=== PATIENT | female | born 1980 | race Two or more races ===

== ENCOUNTER 2024-10-12 17:08 | Inpatient (IN) | payer MEDICAID, OTHER ==
[~2024-10-12] VITALS: Ht 152.4 cm; Wt 64.9 kg
--- NOTE | 2024-10-12 18:27 | ED.PDOC ---
HPI (NEURO) HPI Comments HPI: 44y F who presents to the ED via EMS for chief complaint of seizure like activity - per EMS, pt family called after noting pt has seizure with noted tonic clonic activity for approx 2 minutes - EMS arrived on scene and noted pt was on the ground with unknown head trauma or injury but was alert with noted post-ictal state - EMS states pt has no oral trauma or incontinence noted and EMS states upon arrival to the ED, pt was baseline and no longer in post-ictal state - pt state she has has history of seizure disorder and takes Keppra 500 mg BID and states she took her Keppra last night but states she did not take it this AM - pt states last seizure was September 2023 and states she last saw neurologist 2 years prior - pt in the ED, is alert and oriented x 4 and able to answer all questions, and no noted associated symptoms including headache, dizziness, or any associated symptoms Past Medical history: seizure disorder Past Surgical history: Medications: keppra Allergies: nkda Social History: denies ETOH, denies tobacco use, denies drug use HPI: Poor Historian. REVIEW OF SYSTEMS: CONSTITUTIONAL: All symptoms have resolved by the time I evaluated the patient. She is no longer postictal. She is back to her baseline. Denies acute: fever, diaphoresis, chills, HEAD: Denies acute: headache, photophobia Eyes: Denies acute: Double vision, vision loss, eye pain, eye discharge. EARS: Denies acute: tinnitus, hearing loss, ear discharge, ear pain, THROAT: Denies acute: sore throat, swelling, difficulty swallowing , pain with swallowing, change in voice. NECK: Denies acute: neck pain, neck swelling, stiff neck. HEART: Denies acute : chest pain, palpitations, LUNGS: Denies acute: SOB, wheezing, cough, hemoptysis ABDOMEN: Denies acute: abdominal pain, Nausea, Vomiting, diarrhea, melena , hematemesis, hematochezia SKIN: Denies acute: rash, redness, lesions, itchiness. EXTREMITIES: Denies acute: calf pain, numbness, tingling, weakness, denies pain in extremity. Denies acute: Low back pain. Neuro: Denies acute: focal neurological deficit, motor or sensory focal neurological deficit, dizziness, change in mental status, loss of bowel or bladder function, cauda equina like symptoms. : Denies acute: dysuria, hematuria, flank pain, increase in urinary frequency. PSYCH: Denies acute: hallucination, suicidal ideation, homicidal ideation. FEMALE: Denies acute: abnormal vaginal bleeding, foul odor, unusual discharge. PHYSICAL EXAM: General: ----no----acute distress, awake and alert. Head: normocephalic, atraumatic. Neck: supple, trachea is midline, no swelling. Cervical spine: Palpation of the posterior midline of the cervical spine reveals no focal swelling, erythema, focal tenderness to palpation. Patient has normal range of motion. Throat: Normal phonation. Eyes:, no erythema, no purulent discharge, no proptosis, no icterus. Heart: regular rate, regular rhythm, no significant murmur appreciated. Lungs: no apparent respiratory distress, Able to speak in full sentences. No wheezing, no rhonchi, no crackles. No stridors Clear to auscultation bilaterally. Abdomen: non tender to palpation, non distended, soft, no guarding, no rebound, + bowel sounds. Neuro: Awake, Alert, oriented to name, self, situation, follows commands GCS=15. Speech is normal. Skin: no petechia, no purpura, no cyanosis, non-pale, not jaundice. Lower extremities: --no - Pitting edema no deformity, no focal swelling, no calf TTP. Makes eye contact. moves all four extremities. Face: no apparent facial droop. Stroke: finger to nose cerebellar testing is intact. No pronator drift. 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 No nuchal rigidity, Kernig's sign, Brudzinski's sign, no meningeal signs. ED COURSE: Chief Complaint: Seizure Time Seen by MD: 18:26 Reviewed Notes: Nurses Notes, Medications, Allergies Information Source: Patient, Emergency Med Personnel Mode of Arrival: EMS Was a procedure done? Was a procedure done?: No Differential Diagnosis (SZ) Seizure: Other (SEIZUREDDX include not limited to CVA, cerebellar ischemia/infarct, carotid stenosis, vertebral/carotid artery dissection,, vertebrobasillary insufficiency, Intracranial mass/infection/bleed, encephalopathy, elctrolyte abnormality, thyroid disease, multiple sclerosis, hypoglycemia, drug toxicity, cardiac arrhythmia, sub-theraputic anti-convulsion medications, known seizure disorder, pseudo-seizure.) X-Ray, Labs, Meds, VS Vital Signs Date Time Temp Pulse Resp B/P (MAP) Pulse Ox O2 Delivery O2 Flow Rate FiO2 10/12/24 22:58 89 18 97 Room Air* 0 21 10/12/24 22:56 97.8 85 18 121/80 (94) 100 97.8 10/12/24 21:09 98.8 107 19 134/91 (105) 99 98.8 10/12/24 20:03 93 10/12/24 18:25 98.3 138 14 169/99 (122) 98 98.3 10/12/24 17:20 123 Lab Test 10/12/24 23:26 10/12/24 22:15 10/12/24 21:00 10/12/24 18:42 Range/Units Urine Color Colorless Yellow Urine Clarity Clear Clear Urine pH 6.0 5.0-9.0 Urine Specific Hunt 1.004 1.001-1.035 Urine Protein Negative Negative Urine Ketones Negative Negative Urine Blood Negative Negative /uL Urine Nitrite Negative Negative Urine Bilirubin Negative Negative Urine Urobilinogen Normal Negative mg/dL Urine Leukocyte Esterase Negative Negative /uL Urine RBC <1 0 - 4 /hpf Urine Microscopic WBC 0-5 /HPF Urine Squamous Epithelial Cells Few <5 /hpf Urine Bacteria None seen None Seen /hpf Urine Glucose Normal Normal mg/dL Urine Opiates Screen Neg NEGATIVE Urine Fentanyl Screen Neg NEGATIVE Urine Barbiturates Screen Neg NEGATIVE Urine Phencyclidine Screen Neg NEGATIVE Urine Amphetamines Screen Neg NEGATIVE Urine Benzodiazepines Screen Neg NEGATIVE Urine Cocaine Screen Neg NEGATIVE Urine Cannabinoids Screen Neg NEGATIVE Troponin I High Sensitivity 626 *H 510 *H 172 *H </=34 ng/L White Blood Count 9.7 4.4-10.8 10^3/uL Red Blood Count 4.52 4.0-5.20 10^6/uL Hemoglobin 14.2 12.2-16.2 g/dL Hematocrit 41.7 36.0-46.0 % Mean Corpuscular Volume 92.2 80.0-100.0 fL Mean Corpuscular Hemoglobin 31.3 28.0-32.0 pg Mean Corpuscular Hemoglobin Concent 34.0 32.0-36.0 g/dL Red Cell Distribution Width 13.4 11.8-14.3 % Platelet Count 153 140-450 10^3/uL Mean Platelet Volume 11.0 H 6.9-10.8 fL Neutrophils (%) (Auto) 89.8 H 37.0-80.0 % Lymphocytes (%) (Auto) 5.7 L 10.0-50.0 % Monocytes (%) (Auto) 4.0 0.0-12.0 % Eosinophils (%) (Auto) 0.2 0.0-7.0 % Basophils (%) (Auto) 0.3 0.0-2.0 % Neutrophils # (Auto) 8.7 H 1.6-8.6 10 ^3/uL Lymphocytes # (Auto) 0.6 0.4-5.4 10 ^3/uL Monocytes # (Auto) 0.4 0-1.3 10 ^3/uL Eosinophils # (Auto) 0 0-0.8 10 ^3/uL Basophils # (Auto) 0 0-0.2 10 ^3/uL Nucleated Red Blood Cells 0.0 % Sodium Level 137 136-145 mmol/L Potassium Level 3.6 3.5-5.1 mmol/L Chloride Level 104 98-107 mmol/L Carbon Dioxide Level 24 20-31 mmol/L Anion Gap 9 5-15 Blood Urea Nitrogen 9 9-23 mg/dL Creatinine 0.71 0.550-1.02 mg/dL Glomerular Filtration Rate Calc 108 >90 mL/min BUN/Creatinine Ratio 12.7 10.0-20.0 Serum Glucose 113 H 74-106 mg/dL Lactic Acid Level 1.8 0.4-2.0 mmol/L Calcium Level 9.7 8.7-10.4 mg/dL Magnesium Level 2.1 1.6-2.6 mg/dL Total Bilirubin 0.4 0.2-1.0 mg/dL Aspartate Amino Transferase (AST) 16 13-40 U/L Alanine Aminotransferase (ALT) 17 7-40 U/L Alkaline Phosphatase 63 46-116 U/L Creatine Kinase 216 H 34-145 U/L Total Protein 7.5 5.7-8.2 g/dL Albumin 4.7 3.2-4.8 g/dL [facility] [id number] [facility] [address] Ph: [phone] DIAGNOSTIC IMAGING Diagnostic Imaging Report : [id number] Signed PATIENT: JOSE A GRACECT: [id number] UNIT: [id number] : 1980 LOC: ER ROOM / BED: / AGE / SEX: 44 / F ADM STATUS: REG ER SERVICE 180 ORDERING PHYSICIAN: HAILEY ALVES DO PROCEDURE(s): HWOCT - HEAD WITHOUT CONTRAST REASON: seizure ORDER NUMBER(s): [id number], ACCESSION NUMBER(s): [id number] EXAM: CT HEAD WITHOUT CONTRAST INDICATION: seizure TECHNIQUE: CT of the head without intravenous contrast. Radiation Dose : 1. Head: CT Dose: CTDI volume is 51.32 mGy. Dose-length product is 720.23 mGy*cm The dose indicators for CT are the volume Computed Tomography (CT) Dose Index (CTDIvol) and the Dose Length Product (DLP), and are measured in units of mGy and mGy-cm, respectively. These indicators are not patient dose, but values generated from the CT scanner acquisition factors. The report includes radiation exposure data for exposures received during this examination. COMPARISON: None FINDINGS: There is no evidence of acute intracranial hemorrhage, extra-axial collection, mass effect, midline shift, herniation or hydrocephalus. The ventricles, sulci and cisterns are age appropriate. The mederos-white differentiation is intact. Patchy periventricular and subcortical white matter hypoattenuation is nonspecific but may be related to small vessel ischemic disease. Complete opacification of the right maxillary sinus The surrounding soft tissues and osseous structures are unremarkable. IMPRESSION: 1. No acute intracranial abnormality. 2. Right maxillary sinusitis Radiation optimization: All CT scans at this facility use at least one of these dose optimization techniques: automated exposure control mA and/or kV adjustment per patient size (includes targeted exams where dose is matched to clinical indication) or iterative reconstruction. ATED BY: CIARA MARRERO MD DICTATED DATE/TIME: 10/12/24 1831 SIGNED BY: CIARA MARRERO MD SIGNED DATE/TIME: 10/12/241830 CC: [place] [address] Ph: [phone] DIAGNOSTIC IMAGING Diagnostic Imaging Report : [id number] Signed PATIENT: JOSE A GRACECT: [id number] UNIT: [id number] : 1980 LOC: ER ROOM / BED: / AGE / SEX: 44 / F ADM STATUS: REG ER SERVICE 00 ORDERING PHYSICIAN: HAILEY ALVES DO PROCEDURE(s): CXRP - CHEST PORTABLE REASON: seizure ORDER NUMBER(s): [id number], ACCESSION NUMBER(s): [id number] EXAM: XY CHEST PORTABLE TECHNIQUE: Single frontal chest radiograph CLINICAL HISTORY: seizure COMPARISON: None Findings/Impression: Frontal chest radiograph demonstrates no acute osseous or superficial soft tissue abnormalities. The trachea is midline. The cardiac silhouette and mediastinum are within normal limits. No pneumothorax, pleural effusions, or consolidations. ATED BY: SORAIDA YOUNG DO DICTATED DATE/TIME: 10/12/241835 SIGNED BY: SORAIDA YOUNG DO SIGNED DATE/TIME: 10/12/241835 CC: Time of 1ST Reevaluation: 21:41 (The case was discussed with the [facility] admitting team (HPI, physical exam, labs and diagnostic tests that were available at the time of disposition, ED course, treatment plan) on the phone. They authorized us to keep the patient in our facility for further evaluation and treatment. Dr. Chiang Authorization number is--[id number]) Reevaluation 1ST: Improved Time of 2ND Reevaluation: 23:19 (The case was discussed with the cardiology on- call team (HPI, physical exam, labs and diagnostic tests that were available at the time of disposition, ED course, treatment plan) on the phone. They agreed with our management and said that they will follow in consult. Dr. Moreno. No further recommendations.) Reevaluation 2ND: Resolved Patient Education/Counseling: Diagnosis, Treatment Family Education/Counseling: No Family Present Comments Patient presented with the above HPI.--seizure----workup was initiated. patient was found with the above mentioned diagnosis. No reported history of fall or trauma or injury. Patient arrives at her baseline neurological function no longer postictal. the following medications were ordered: please refer to order lists of meds and tests obtained by myself Dr. Alves. Patient ED course and VS have been stabilized. Patient has been reassessed in the ED and remained in a stable condition. Pertinent incidental findings were discussed with the patient and/or family. Patient/family voices understanding and is agreeable with plan. Patient has been observed in the ED adequate length of time to insure improvement/stability. Escalation of care considered: Consideration of escalation to observation or admission Patient was found with elevated troponin. However she denies any chest pain or shortness of breath. Cardiology was consulted. Patient was ADMITTED to the medicine team for further evaluation and treatment of their presentation. All the reports of any imaging studies that were ordered by myself were reviewed by myself. Departure 1 Departure Time of Disposition: 19:35 Impression: Primary Impression: Recurrent seizures Additional Impressions: Elevated troponin NSTEMI (non-ST elevated myocardial infarction) Disposition: ADMITTED INPATIENT Admit to: Tele Condition: Guarded e-Prescriptions Levetiracetam (Levetiracetam) 500 Mg Tab 1 TAB PO BID for 30 Days, #60 TAB Prov: MAGDA RIVAS RESIDENT 10/14/24 Discharged With: Self Critical Care Note Critical Care Time?: Yes (55 min-critical care time only) I personally scribed for HAILEY ALVES DO ([email or web address]) on 10/12/24 at 18:27. Electronically submitted by Addis Garcia ([email or web address]). I personally scribed for HAILEY ALVES DO ([email or web address]) on 10/12/24 at 20:00. Electronically submitted by Addis Garcia ([email or web address]). HAILEY ALVES DO Oct 12, 2024 18:27
--- NOTE | 2024-10-12 18:34 | DVH ---
EXAM: CT HEAD WITHOUT CONTRAST INDICATION: seizure TECHNIQUE: CT of the head without intravenous contrast. Radiation Dose : 1. Head: CT Dose: CTDI volume is 51.32 mGy. Dose-length product is 720.23 mGy*cm The dose indicators for CT are the volume Computed Tomography (CT) Dose Index (CTDIvol) and the Dose Length Product (DLP), and are measured in units of mGy and mGy-cm, respectively. These indicators are not patient dose, but values generated from the CT scanner acquisition factors. The report includes radiation exposure data for exposures received during this examination. COMPARISON: None FINDINGS: There is no evidence of acute intracranial hemorrhage, extra-axial collection, mass effect, midline s hift, herniation or hydrocephalus. The ventricles, sulci and cisterns are age appropriate. The mederos-white differentiation is intact. Patchy periventricular and subcortical white matter hypoattenuation is nonspecific but may be related to small vessel ischemic disease. Complete opacification of the right maxillary sinus The surrounding soft tissues and osseous structures are unremarkable. IMPRESSION: 1. No acute intracranial abnormality. 2. Right maxillary sinusitis Radiation optimization: All CT scans at this facility use at least one of these dose optimization cedrick hniques: automated exposure control mA and/or kV adjustment per patient size (includes targeted exam s where dose is matched to clinical indication) or iterative reconstruction.
--- NOTE | 2024-10-12 18:38 | DVH ---
EXAM: XY CHEST PORTABLE TECHNIQUE: Single frontal chest radiograph CLINICAL HISTORY: seizure COMPARISON: None Findings/Impression: Frontal chest radiograph demonstrates no acute osseous or superficial soft tissue abnormalities. The trachea is midline. The cardiac silhouette and mediastinum are within normal limits. No pneumothorax, pleural effusions, or consolidations.
--- NOTE | 2024-10-12 18:44 | ECG ---
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
[2024-10-12 19:00] LABS: Basophils # (auto) 0 10 ^3/uL (0-0.2); Basophils % (auto) 0.3 % (0.0-2.0); Eosinophils # (auto) 0 10 ^3/uL (0-0.8); Eosinophils % (auto) 0.2 % (0.0-7.0); Hematocrit 41.7 % (36.0-46.0); Hemoglobin 14.2 g/dL (12.2-16.2); Lymphocytes # (auto) 0.6 10 ^3/uL (0.4-5.4); Lymphocytes % (auto) 5.7 % (10.0-50.0); Mean Corpuscular Hemoglobin 31.3 pg (28.0-32.0); Mean Corpuscular Volume 92.2 fL (80.0-100.0); Monocytes # (auto) 0.4 10 ^3/uL (0-1.3); Neutrophils # (auto) 8.7 10 ^3/uL (1.6-8.6); Neutrophils % (auto) 89.8 % (37.0-80.0); Platelet Count (auto) 153 10^3/uL (140-450); Red Blood Cells 4.52 10^6/uL (4.0-5.20); Red Cell Distribution Width 13.4 % (11.8-14.3); White Blood Cell 9.7 10^3/uL (4.4-10.8)
[2024-10-12 19:18] LABS: Alanine Aminotransferase 17 U/L (7-40); Albumin 4.7 g/dL (3.2-4.8); Alkaline Phosphatase 63 U/L (46-116); Anion Gap 9 (5-15); Aspartate Aminotransferase 16 U/L (13-40); BUN/Creatinine Ratio 12.7 (10.0-20.0); Calcium 9.7 mg/dL (8.7-10.4); Carbon Dioxide 24 mmol/L (20-31); Chloride 104 mmol/L (98-107); Magnesium 2.1 mg/dL (1.6-2.6); Potassium 3.6 mmol/L (3.5-5.1); Sodium 137 mmol/L (136-145); Total Protein 7.5 g/dL (5.7-8.2)
[2024-10-12 19:19] LABS: Bilirubin, Total 0.4 mg/dL (0.2-1.0)
[2024-10-12 19:28] LABS: Blood Urea Nitrogen 9 mg/dL (9-23); Creatine Kinase IFCC 216 U/L (34-145); Glucose 113 mg/dL (74-106)
[2024-10-12] MEDS: levETIRAcetam 1000 mg/100ml 100 ML IV ONE (22:22)
[2024-10-12] MEDS: ASPirin-EC 325mg tab PO ONE (22:22)
[2024-10-12] MEDS: SODIUM CHLORIDE 0.9% 1,000 ML IV ONE (22:23)
[2024-10-12 22:58] VITALS: PULSE 89; RESP 18; O2SAT 97
--- NOTE | 2024-10-12 23:31 | DVHHPRES ---
History of Present Illness Resident Creating Document: HERNAN ARANDA RESIDENT History of Present Illness 44-year-old female patient with past medical history of seizures on Keppra and past surgical history of presented with complaints of episode of seizure. Patient mentioned she felt "lightheadedness and the next thing she was in the ER". She is denying any active complaints including chest pain, shortness of breath, cough, hemoptysis, nausea, vomiting, abdominal pain. Patient mentioned that she takes Keppra 500 mg b.i.d., to Keppra last night but did not take in the morning today. Patient mentioned she had last seizure in April and before that three years ago.per EMS, pt family called after noting pt has seizure with noted tonic clonic activity for approx 2 minutes. EMS arrived on scene and noted pt was on the ground with unknown head trauma or injury but was alert with noted post-ictal state. Past medical history Seizures Past surgical history section Medication history Keppra 500 mg b.i.d. Allergic history No known allergies Social history Patient mentioned that she takes marijuana but denied alcohol, smoking, or any other recreational drug intake Family history Nonsignificant Review of Systems Review of Systems ROS Constitutional: No: Fever, Chills, Sweats, Weakness, Malaise, Other Eyes: No: Pain, Vision change, Conjunctivae inflammation, Eyelid inflammation, Other, Redness ENT: No: Ear pain, Ear discharge, Nose pain, Nose discharge, Nose congestion, Mouth pain, Mouth swelling, Throat pain, Throat swelling, Other Respiratory: No: Cough, Dry, Shortness of breath, SOB with excertion, Wheezing, Hemoptysis, Pleuritic Pain, Sputum, Wheezing, Other Cardiovascular: No: Chest Pain, Palpitations, Orthopnea, Paroxysmal Noc. Dyspnea, Edema, Lt Headedness, Other Gastrointestinal: No: Nausea, Vomiting, Abdominal Pain, Diarrhea, Constipation, Melena, Hematochezia, Other Musculoskeletal: No: other, neck pain, shoulder pain, arm pain, back pain, hand pain, leg pain, foot pain Neurological:; seizures followed by postictal state No: Weakness, Numbness, Incoordination, Change in speech, Confusion, Seizures Allergies: Coded Allergies: NO KNOWN ALLERGIES (Unverified , 10/12/24) Exam Vital Signs Vital Signs Date Time Temp Pulse Resp B/P (MAP) Pulse Ox O2 Delivery O2 Flow Rate FiO2 10/12/24 22:58 89 18 97 Room Air* 0 21 10/12/24 22:56 97.8 121/80 (94) 97.8 Exam Examination General Appearance: Alert, Oriented X3, Cooperative, No acute distress HEENT: EOMI Respiratory: Clear to auscultation, Normal air movement Cardiovascular: Regular rate, Normal S1, Normal S2 Abdominal: Normal bowel sounds Extremities: No cyanosis, No edema, Normal pulses, No tenderness/swelling Skin: No rashes, No breakdown Neuro: Normal gait, Normal speech, Strength at 5/5 X4 ext, Normal tone, Sensa tion intact, Cranial nerves 3-12 NL, Reflexes 2+ Psych/Mental Status: Mental status NL, Mood NL Labs/Xrays Labs Test 10/12/24 22:15 10/12/24 18:42 Range/Units Troponin I High Sensitivity 626 *H </=34 ng/L White Blood Count 9.7 4.4-10.8 10^3/uL Red Blood Count 4.52 4.0-5.20 10^6/uL Hemoglobin 14.2 12.2-16.2 g/dL Hematocrit 41.7 36.0-46.0 % Mean Corpuscular Volume 92.2 80.0-100.0 fL Mean Corpuscular Hemoglobin 31.3 28.0-32.0 pg Mean Corpuscular Hemoglobin Concent 34.0 32.0-36.0 g/dL Red Cell Distribution Width 13.4 11.8-14.3 % Platelet Count 153 140-450 10^3/uL Mean Platelet Volume 11.0 H 6.9-10.8 fL Neutrophils (%) (Auto) 89.8 H 37.0-80.0 % Lymphocytes (%) (Auto) 5.7 L 10.0-50.0 % Monocytes (%) (Auto) 4.0 0.0-12.0 % Eosinophils (%) (Auto) 0.2 0.0-7.0 % Basophils (%) (Auto) 0.3 0.0-2.0 % Neutrophils # (Auto) 8.7 H 1.6-8.6 10 ^3/uL Lymphocytes # (Auto) 0.6 0.4-5.4 10 ^3/uL Monocytes # (Auto) 0.4 0-1.3 10 ^3/uL Eosinophils # (Auto) 0 0-0.8 10 ^3/uL Basophils # (Auto) 0 0-0.2 10 ^3/uL Nucleated Red Blood Cells 0.0 % Sodium Level 137 136-145 mmol/L Potassium Level 3.6 3.5-5.1 mmol/L Chloride Level 104 98-107 mmol/L Carbon Dioxide Level 24 20-31 mmol/L Anion Gap 9 5-15 Blood Urea Nitrogen 9 9-23 mg/dL Creatinine 0.71 0.550-1.02 mg/dL Glomerular Filtration Rate Calc 108 >90 mL/min BUN/Creatinine Ratio 12.7 10.0-20.0 Serum Glucose 113 H 74-106 mg/dL Lactic Acid Level 1.8 0.4-2.0 mmol/L Calcium Level 9.7 8.7-10.4 mg/dL Magnesium Level 2.1 1.6-2.6 mg/dL Total Bilirubin 0.4 0.2-1.0 mg/dL Aspartate Amino Transferase (AST) 16 13-40 U/L Alanine Aminotransferase (ALT) 17 7-40 U/L Alkaline Phosphatase 63 46-116 U/L Creatine Kinase 216 H 34-145 U/L Total Protein 7.5 5.7-8.2 g/dL Albumin 4.7 3.2-4.8 g/dL Assessment/Plan Assessment/Plan Assessment/Plan #Break-through seizure , ?likely due to CB use and medication non adherence -ativan PRN -continue keppra 500mg daily ( home dose) elevated Creatine kinase , repeat #elevated trops likely NSTEMI type 2 due to demand ischaemia due to seizure, possible chest injury -pt was given aspirin 325 mg in the ER -cards consult -echo -ekg Case discussion with dr samuels Plan discussed with: Patient My Orders Orders - HERNAN ARANDA RESIDENT Procedure Category Date Status Time Admit ADMIT 10/12/24 Transmitted 23:29 Oxygen By Nasal RT 10/12/24 Transmitted Cannula 23:29 Stat Ekg For Chest LOBO 10/12/24 Transmitted Pain 23:29 Notify Of Changes LOBO 10/12/24 Transmitted From Base 23:29 Community Outreach Advocate For LOBO 10/12/24 Transmitted 24 Hours 23:29 Emergency Dysrhythmia LOBO 10/12/24 Transmitted Protocol 23:29 Rhythm Strips Once [facility] 10/12/24 Transmitted Every Shift 23:29 Date of Service: Oct 12, 2024 Billing Provider: SANDRA SAMUELS MD Common Visit Codes: [id number] INP/OBS CARE (HIGH) GLADYSARANZA HOOKSIL RESIDENT Oct 12, 2024 23:31 SANDRA SAMUELS MD Oct 13, 2024 19:38
[2024-10-13] VITALS (9 sets, daily range): BP systolic 100–127; BP diastolic 57–86; PULSE 58–88; RESP 14–18; TEMP 97.4–98; O2SAT 95–99
[2024-10-13 00:13] LABS: Urine Bacteria None Seen /hpf (None Seen)
[2024-10-13 00:38] LABS: Urine Blood Negative /uL (Negative); Urine Clarity Clear (Clear); Urine Color Colorless (Yellow); Urine Protein, UAD Negative (Negative); Urine Specific Gravity 1.004 (1.001-1.035); Urine Squamous Epithelial Cell FEW /hpf (<5); Urine Urobilinogen Normal (Negative)
[2024-10-13] MEDS ORDERED: LORazepam 2MG/ML-1ML VIAL IV PRN (02:30)
[2024-10-13] MEDS ORDERED: LEVE500T3 PO (03:35)
[2024-10-13 04:14] LABS: Cannabinoid Screen, Urine Neg (NEGATIVE)
[2024-10-13 04:21] LABS: Amphetamine Screen, Urine Neg (NEGATIVE); Barbiturate Scree,Urine Neg (NEGATIVE); Benzodiazephine Screen, Urine Neg (NEGATIVE); Cocaine Screen, Urine Neg (NEGATIVE); Opiate Scree,Urine Neg (NEGATIVE); Phencyclidine Screen, Urine Neg (NEGATIVE)
--- NOTE | 2024-10-13 04:53 | ECG ---
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
[2024-10-13 07:09] LABS: Basophils # (auto) 0 10 ^3/uL (0-0.2); Basophils % (auto) 0.7 % (0.0-2.0); Eosinophils # (auto) 0 10 ^3/uL (0-0.8); Eosinophils % (auto) 0.5 % (0.0-7.0); Hematocrit 38.9 % (36.0-46.0); Hemoglobin 13.4 g/dL (12.2-16.2); Lymphocytes # (auto) 1.1 10 ^3/uL (0.4-5.4); Lymphocytes % (auto) 21.4 % (10.0-50.0); Mean Corpuscular Hemoglobin 31.9 pg (28.0-32.0); Mean Corpuscular Hgb Conc. 34.4 g/dL (32.0-36.0); Mean Corpuscular Volume 92.7 fL (80.0-100.0); Monocytes # (auto) 0.4 10 ^3/uL (0-1.3); Monocytes % (auto) 7.6 % (0.0-12.0); Neutrophils # (auto) 3.7 10 ^3/uL (1.6-8.6); Neutrophils % (auto) 69.8 % (37.0-80.0); Nucleated Red Blood Cells % 0.1 %; Platelet Count (auto) 151 10^3/uL (140-450); Red Cell Distribution Width 13.5 % (11.8-14.3); White Blood Cell 5.4 10^3/uL (4.4-10.8)
[2024-10-13 07:13] LABS: Anion Gap 9 (5-15); Calcium 9.7 mg/dL (8.7-10.4); Potassium 3.8 mmol/L (3.5-5.1); Sodium 142 mmol/L (136-145)
[2024-10-13 07:15] LABS: Chloride 110 mmol/L (98-107)
[2024-10-13 07:18] LABS: BUN/Creatinine Ratio 13.3 (10.0-20.0); Glucose 93 mg/dL (74-106)
[2024-10-13 07:19] LABS: Magnesium 2.2 mg/dL (1.6-2.6)
[2024-10-13 07:31] LABS: Blood Urea Nitrogen 8 mg/dL (9-23); Creatine Kinase IFCC 241 U/L (34-145)
[2024-10-13 07:32] LABS: Carbon Dioxide 23 mmol/L (20-31)
[2024-10-13] MEDS: levETIRAcetam 500 MG TAB PO SCH (08:53)
--- NOTE | 2024-10-13 10:55 | DVHINCON2 ---
JUSTIN LOPEZ [facility] 10/13/24 1055: Date Seen: Oct 13, 2024 Referring Physician MD Savannah Reason for Consultation Elevated troponin History of Present Illness This is a 44-year-old female patient who presents to the emergency room with chief complaint of seizure activity. The patient reports that she was running errands all day on the day of admission. She states that she went home and decided to take a nap and while walking to her bedroom does not remember the events that took place. The patient reports that the next thing she remembers is waking up on the ground surrounded by family members. The patient was told that she had a seizure. She does report waking up face down and noticing some pain to her face. EMS was called and the patient was brought to the emergency room. Cardiology has been consulted at this time for elevated troponin level. Initial twelve lead electrocardiogram reveals normal sinus rhythm with nonspecific ST segment changes to lateral leads. Initial troponin level of 172ng/L with up trend and peak level at 638ng/L. The patient denies any cardiac symptoms including chest pain, shortness of breath, or palpitations. Significant past medical history includes seizures. The patient denies all other history. Past Medical History Past medical history reviewed. No other significant than mentioned above. Past Surgical History Family History: Patient reports no known family medical history. Family History Family history reviewed. Social History Denies the use of tobacco, alcohol or illicit drugs. Allergies: Coded Allergies: NO KNOWN ALLERGIES (Unverified , 10/12/24) Home Meds Active Scripts Levetiracetam (Levetiracetam) 500 Mg Tab, 1 TAB PO BID for 30 Days, #60 TAB Prov:MAGDA RIVAS RESIDENT 10/14/24 Home Meds Home medications reviewed. Current Medications Current Medications Medications (Trade) Dose Ordered Sig/Tanya Route PRN Reason Start Time Stop Time Status Last Admin Levetiracetam (Keppra Tablet) 500 mg BID PO 10/13/24 10:00 10/13/24 08:53 Lorazepam (Ativan Inj) 1 mg Q5MINP PRN IV SEIZURES 10/13/24 02:30 Review of Systems Constitutional: No symptom reported Ears, Nose, & Throat: No symptom reported Eyes: No symptom reported Neurological: Seizure Pulmonary/Respiratory: No symptoms reported Cardiovascular: No symptom reported Gastrointestinal: No symptom reported Genitourinary: No symptom reported Musculoskeletal: No symptom reported Skin: No symptom reported Psychiatric: No symptom reported Endocrine: No symptom reported Hematologic/Lymphatic: No symptom reported Vital Signs Vital Signs Date Time Temp Pulse Resp B/P (MAP) Pulse Ox O2 Delivery O2 Flow Rate FiO2 10/13/24 08:46 97.4 68 16 110/76 (87) 98 97.4 10/13/24 08:00 Room Air* 0 21 Physical Exam General Appearance: Cooperative. Well-developed. Well-nourished. No acute distress. Pulmonary/Respiratory: Clear, bilateral breaths sounds. Cardiovascular/Chest: Regular rate and rhythm. Peripheral Pulses: 2+ Radial (R). 2+ Radial (L). 2+ Pedal (R). 2+ Pedal (L) Abdominal Exam: Normal bowel sounds. Ankle Exam: Negative ankle edema Lower extremities: Negative lower extremity edema Neuro/Mental Status: A/OX4, coherent. Thoughts/Psych: Normal thought pattern. Appropriate mood and affect. Good judgment and insight. Appearance: No acute distress. Skin Exam: Abrasion to right forehead. Ecchymosis under right eye Labs/Diagnostic Data Labs Test 10/13/24 06:20 10/12/24 23:26 10/12/24 18:42 Range/Units White Blood Count 5.4 # 4.4-10.8 10^3/uL Red Blood Count 4.20 4.0-5.20 10^6/uL Hemoglobin 13.4 12.2-16.2 g/dL Hematocrit 38.9 36.0-46.0 % Mean Corpuscular Volume 92.7 80.0-100.0 fL Mean Corpuscular Hemoglobin 31.9 28.0-32.0 pg Mean Corpuscular Hemoglobin Concent 34.4 32.0-36.0 g/dL Red Cell Distribution Width 13.5 11.8-14.3 % Platelet Count 151 140-450 10^3/uL Mean Platelet Volume 11.1 H 6.9-10.8 fL Neutrophils (%) (Auto) 69.8 37.0-80.0 % Lymphocytes (%) (Auto) 21.4 10.0-50.0 % Monocytes (%) (Auto) 7.6 0.0-12.0 % Eosinophils (%) (Auto) 0.5 0.0-7.0 % Basophils (%) (Auto) 0.7 0.0-2.0 % Neutrophils # (Auto) 3.7 1.6-8.6 10 ^3/uL Lymphocytes # (Auto) 1.1 0.4-5.4 10 ^3/uL Monocytes # (Auto) 0.4 0-1.3 10 ^3/uL Eosinophils # (Auto) 0 0-0.8 10 ^3/uL Basophils # (Auto) 0 0-0.2 10 ^3/uL Nucleated Red Blood Cells 0.1 % Sodium Level 142 # 136-145 mmol/L Potassium Level 3.8 3.5-5.1 mmol/L Chloride Level 110 H 98-107 mmol/L Carbon Dioxide Level 23 20-31 mmol/L Anion Gap 9 5-15 Blood Urea Nitrogen 8 L 9-23 mg/dL Creatinine 0.60 0.550-1.02 mg/dL Glomerular Filtration Rate Calc 114 >90 mL/min BUN/Creatinine Ratio 13.3 10.0-20.0 Serum Glucose 93 74-106 mg/dL Calcium Level 9.7 8.7-10.4 mg/dL Magnesium Level 2.2 1.6-2.6 mg/dL Creatine Kinase 241 H 34-145 U/L Troponin I High Sensitivity 638 *H </=34 ng/L Urine Color Colorless Yellow Urine Clarity Clear Clear Urine pH 6.0 5.0-9.0 Urine Specific [place] 1.004 1.001-1.035 Urine Protein Negative Negative Urine Ketones Negative Negative Urine Blood Negative Negative /uL Urine Nitrite Negative Negative Urine Bilirubin Negative Negative Urine Urobilinogen Normal Negative mg/dL Urine Leukocyte Esterase Negative Negative /uL Urine RBC <1 0 - 4 /hpf Urine Microscopic WBC 0-5 /HPF Urine Squamous Epithelial Cells Few <5 /hpf Urine Bacteria None seen None Seen /hpf Urine Glucose Normal Normal mg/dL Urine Opiates Screen Neg NEGATIVE Urine Fentanyl Screen Neg NEGATIVE Urine Barbiturates Screen Neg NEGATIVE Urine Phencyclidine Screen Neg NEGATIVE Urine Amphetamines Screen Neg NEGATIVE Urine Benzodiazepines Screen Neg NEGATIVE Urine Cocaine Screen Neg NEGATIVE Urine Cannabinoids Screen Neg NEGATIVE Lactic Acid Level 1.8 0.4-2.0 mmol/L Total Bilirubin 0.4 0.2-1.0 mg/dL Aspartate Amino Transferase (AST) 16 13-40 U/L Alanine Aminotransferase (ALT) 17 7-40 U/L Alkaline Phosphatase 63 46-116 U/L Total Protein 7.5 5.7-8.2 g/dL Albumin 4.7 3.2-4.8 g/dL Assessment Seizure NSTEMI, likely type II secondary to above ?Medication nonadherence Plan/Recommendation We will continue with the following plan/recommendations (Dr. Claudio): The patient was seen and examined at bedside with . Transthoracic echocardiogram reveals an EF of 60% with no severe valve abnormalities. The patient denies any cardiac symptoms at time of assessment. Elevated troponin level likely secondary to demand ischemia from seizure activity. There is no further inpatient cardiac workup indicated at this time. Thank you for allowing us to care for this patient. Please call with any questions or concerns. Critical care time spent: 38 minutes This medical document was created using an electronic medical record system with voice recognition software and computerized dictation system. Although this document has been carefully reviewed, there might still be some phonetic and typographical errors. Occasional wrong-word or ``sound-alike substitutions may have occurred due to the inherent limitations of voice recognition software. These areas are purely typographical due to imperfections of the software progr ams and do not reflect any compromise in the patient's medical care. Please read the chart carefully and recognize, using context, where these substitutions have occurred. Plan discussed with: Patient NYHA Physical activity limitations: NA Date of Service: Oct 13, 2024 Billing Provider: JUSTIN LOPEZ Cardiology Common Codes: 42586-[id number] INP/OBS CARE (High) Cardiology Consultation Codes: 86153-[id number] CONSULT <45MIN LEIA CLAUDIO MD 10/14/24 1245: Family History: Patient reports no known family medical history. Allergies: Coded Allergies: NO KNOWN ALLERGIES (Unverified , 10/12/24) Home Meds Active Scripts Levetiracetam (Levetiracetam) 500 Mg Tab, 1 TAB PO BID for 30 Days, #60 TAB Prov:MAGDA RIVAS RESIDENT 10/14/24 Plan/Recommendation PT SEEN WITH CV CAR SHIFTER AGREE WITH CAR SHIFTER ASSESSMENT AND PLAN PERSONALLY DISCUSSED WITH PATIENT FU WITH SPECIALIST PRIORITY SHOULD BE NEURO CONSULT AND EVAL TROP CAN BE 2/2 TO SEIZURE NORMAL LVEF SIGNING OFF JUSTIN LOPEZ Oct 13, 2024 10:55 LEIA CLAUDIO MD Oct 14, 2024 12:45
[2024-10-13] MEDS: SODIUM CHLORIDE 0.9% 1,000 ML IV SCH (11:32)
[2024-10-13 11:40] LABS: INR 1.03 (0.9-1.15); Partial Thromboplastin Time 29.3 SEC (24.5-34.5); Prothrombin Time 10.9 sec (9.3-11.8)
--- NOTE | 2024-10-13 12:27 | DVHSR ---
APPROVED REPORT EXAM: Two-dimensional and M-mode echocardiogram with Doppler and color Doppler. Blood Pressure: 106/70 mmHg INDICATION Elevated Trops RISK FACTORS Height: 5', Weight: 145 DIMENSIONS LVDd4.6 (3.8-5.7cm)LA (2D)3.4 (1.9-4.0cm)Aortic Root2.8 (2.0-3.7cm) LVDs3.5 (2.5-4.0cm)LA (MM) (1.9-4.0cm)Aortic Cusp Exc1.7 (1.5-2.0cm) EF (%) 49.0 (55-70%)Rt. Atrium3.2 (1.9-4.0cm)Asc. Aorta2.9 cm IVSd0.7 (0.7-1.1cm)RV (D)2.9 (1.8-2.4cm) PWd0.6 (0.7-1.1cm) Mitral Valve MitralMitral Stenosis E wave0.76m/sMV Mean GR.mmHg A wave0.69m/sMV Peak GR.mmHg E/A ratio1.12D MVAcm2 DECEL [id number] 1/2 Timems Aortic Valve Aortic ValveAortic Stenosis V10.95m/Brielle Mean GR.3mmHg V21.07m/Brielle Peak GR.5mmHg LVOT Diameter1.9 (1.8-2.4cm)Doppler AVA2.52cm2 Pulmonic Valve V20.84m/s Conclusion lvef 60 % by visual estimate normal RV function normal atria no severe valve abnormalities noted
--- NOTE | 2024-10-13 18:39 | DVHPNRES ---
Progress Note Date Seen: Oct 13, 2024 Resident Creating Document: MAGDA RIVAS RESIDENT Medical Necessity Reason Pt with a Central, PICC or Fol: No Subjective Review of Systems Patient seen and examined at bedside. Mild fatigue. No postictal confusion. Continue receiving IV fluid. No any other new complaints. ROS Eyes: No Pain, No Vision change, No Conjunctivae inflammation, No Eyelid inflammation, No Other, No Redness ENT: No Ear pain, No Ear discharge, No Nose pain, No Nose discharge, No Nose congestion, No Mouth pain, No Mouth swelling, No Throat pain, No Throat swelling, No Other Cardiovascular: No Chest Pain, No Palpitations, No Orthopnea, No Paroxysmal Noc. Dyspnea, No Edema, No Lt Headedness, No Other Respiratory: No Cough, No Dry, No Shortness of breath, No SOB with excertion, No Wheezing, No Hemoptysis, No Pleuritic Pain, No Sputum, No Other Gastrointestinal: No Nausea, No Vomiting, No Abdominal Pain, No Diarrhea, No Constipation, No Melena, No Hematochezia, No Other Genitourinary: No Dysuria, No Frequency, No Incontinence, No Hematuria, No Retention, No Other Musculoskeletal: No other, No neck pain, No shoulder pain, No arm pain, No back pain, No hand pain, No leg pain, No foot pain Skin: No Rash, No Lesions, No Jaundice, No Bruising, No Other Objective vital signs Vital Sign Date Time Temp Pulse Resp B/P (MAP) Pulse Ox O2 Delivery O2 Flow Rate FiO2 10/13/24 17:00 98.0 58 15 100/57 (71) 99 98.0 10/13/24 08:00 Room Air* 0 21 Total Intake and Output 10/12/24 10/12/24 10/13/24 15:00 23:00 07:00 Intake Total 100 ml 1000 ml Balance 100 ml 1000 ml medications Current Medications Medications Dose Ordered Sig/Tanya Route Start Time Stop Time Status Last Admin Dose Admin Levetiracetam 500 mg BID PO 10/13/24 10:00 10/13/24 08:53 500 MG Lorazepam 1 mg Q5MINP PRN IV 10/13/24 02:30 Sodium Chloride 1,000 ml @ 75 mls/hr [id number] IV 10/13/24 11:15 10/13/24 11:32 75 MLS/HR Examination General Appearance: Cooperative. Well developed. Well nourished. NAD Head Exam: Normal inspection Neck Exam: Normal inspection. Non-tender. Normal alignment Pulmonary/Respiratory: Chest non-tender. Clear bilateral breath sounds Cardiovascular/Chest: Regular rate and rhythm. No murmurs. No JVD. Peripheral Pulses: 2+ Radial (R). 2+ Radial (L). 2+ Pedal (R). 2+ Pedal (L) Abdominal Exam: Normal bowel sounds. Soft. Nontender. No hepatospenomegaly. No masses Ankle Exam: Negative ankle edema Lower extremities: Negative lower extremity edema Neuro/Mental Status: A&O x4. Coherent Thoughts/Psych: Normal thought pattern. Appropriate mood and affect. Good judgement and insight Appearance: In no acute distress Skin Exam: Normal inspection. Normal color. Warm. Dry laboratory and microbiology Laboratory Tests 10/13/24 06:20 Test 10/13/24 06:20 Range/Units Serum Glucose 93 74-106 mg/dL Problem List/Assessment/Plan Problem List/Assessment/Plan #Break-through seizure , ?likely due to CB use and medication non adherence - normal saline 75 mL/hour. -ativan PRN -continue keppra 500mg b.i.d. elevated Creatine kinase -neurology follow-up -head CT scan unremarkable #elevated trops likely NSTEMI type 2 due to demand ischaemia due to seizure, possible chest injury -echocardiogram ejection fraction 60% -EKG sinus rhythm -cardiology: No acute intervention needed Goals of care discussed greater than 22 minutes. Full code status. Case discussion with dr gonsalves Plan discussed with: Patient, Other (RN) My Orders My Orders Orders - MAGDA RIVAS Procedure Category Date Status Time Sodium Chloride 0.9% PHA 10/13/24 In Process 11:15 Date of Service: Oct 13, 2024 Billing Provider: SANDRA GONSALVES MD Common Visit Codes: [id number] INP/OBS CARE(HIGH) MAGDA RIVAS Oct 13, 2024 18:39 SANDRA GONSALVES MD Oct 13, 2024 20:07
--- NOTE | 2024-10-13 18:39 | DVHINCON2 ---
Date of service: Oct 13, [address] Vidales Reason for Consultation Seizure History of Present Illness Ms. Schwartz is a 44 years old right-handed female with a history of seizure disorder, she was admitted to the [facility] on with a chief company of seizure activity. At this time, she is alert and fully oriented, the following history is obtained from her and her When she was walking inside the house on 10/12/2024, she developed a intense dizziness/lightheadedness, but the next memory was waking up on the floor, her son was by her side and her daughter was calling 911, she was said to have seizure, she has a bruise in the right frontal head region. She reported that she only had 4 hour sleep over the 24 hours before this event One day in 2021, she was family were driving from [place], after no sleep for 24 hours, he was tired, when she was sleeping in the back seat, she was a witnessed event where her body tense up and become nonresponsive, the family started CPR and called 911, the patient was sent to a local hospital where she had one was similar event and then was transferred to another hospital, on discharge she was given Keppra. One day in 04/2024, he was busy preparing for a trip, and after 24 hours without sleep, the patient had another similar event when she was flying She has had no biting, incontinence during any of the events, there is no family history of seizure disorder She is on Keppra 500 mg b.i.d. with a poor compliance, because she does not feel comfortable with the medication sometimes. She had more problems when she was on Keppra 750 mg b.i.d. She is aware of seizure ready driving restriction and is to stopped driving till she was cleared UDS, 10/12/2024: Negative Urinalysis, 10/12/2024: WBC:, urine leukocyte esterase: Negative CBC, 10/13/2024: Unremarkable BNP, 10/12/2024: Unremarkable Echocardiogram, 10/13/2024: lvef 60 % by visual estimate normal RV function normal atria no severe valve abnormalities noted CT head, 10/12/2024: 1. No acute intracranial abnormality. 2. Right maxillary sinusitis Past Medical History Seizure Past Surgical History Family History: Patient reports no known family medical history. Family History Diabetes, lupus Social History She was tobacco smoke, she smokes marijuana. No history of drug or alcohol abuse Allergies: Coded Allergies: NO KNOWN ALLERGIES (Unverified , 10/12/24) Home Meds Reported Medications Levetiracetam (Levetiracetam) 500 Mg Tab, 1 TAB PO BID 10/13/24 Current Medications Current Medications Medications (Trade) Dose Ordered Sig/Tanya Route PRN Reason Start Time Stop Time Status Last Admin Levetiracetam (Keppra Tablet) 500 mg BID PO 10/13/24 10:00 10/13/24 08:53 Lorazepam (Ativan Inj) 1 mg Q5MINP PRN IV SEIZURES 10/13/24 02:30 Sodium Chloride 1,000 ml @ 75 mls/hr [id number] IV 10/13/24 11:15 10/13/24 11:32 Review of Systems As above, the other systems are negative Vital Signs Vital Signs Date Time Temp Pulse Resp B/P (MAP) Pulse Ox O2 Delivery O2 Flow Rate FiO2 10/13/24 17:00 98.0 58 15 100/57 (71) 99 98.0 10/13/24 08:00 Room Air* 0 21 Physical Exam GENERAL EXAM: General: the patient is well developed and nourished. No acute distress. HEENT: Normocephalic, neck is supple, no carotid bruits. No mass RESPIRATORY: Normal respiratory effort with symmetrical lung expansion. Lungs clear to auscultation. CARDIOVASCULAR: Regular rate and rhythm with no murmurs. S1, S2. ABDOMEN: Soft, nontender, normal bowel sound NEUROLOGICAL: MENTAL STATUS: Awake and alert. Oriented to person, place, time and general circumstances. Able to give personal history. SPEECH, LANGUAGE, HIGHER CORTICAL FUNCTION: no aphasia or dysathria. CRANIAL NERVES: #2: Intact visual monterroso to confrontation. The optic discs were sharp. #3,4,6: Pupils are equal, round and reactive. EOMs full and conjugate. #5: Facial sensation intact in all three divisions bilaterally. Mandibular strength intact. #7: Facial muscles symmetrical and strength intact. #8: Hearing grossly normal to voice. #9,10: Uvula and soft palate rise in the midline. Swallow and voice are normal. #11: Trapezius and sternomastoid strength intact bilaterally. #12: Tongue midline. No fasciculations or atrophy. SENSATION: Sensation to touch and pinprick is normal. MOTOR: Normal tone in the upper and lower extremity. Normal muscle bulk. No fasciculations. No abnormal movements or posturing. Muscle strength of the major groups in the upper extremities is 5/5. Muscle strength of the major groups in the lower extremities is 5/5. REFLEXES: Deep tendon reflexes normal and symmetrical. No pathological reflexes. CEREBELLAR/COORDINATION: Finger to nose and heel to [place] are normal bilaterally. GAIT/STATION: Unremarkable Labs/Diagnostic Data Labs Test 10/13/24 09:43 10/13/24 06:20 10/12/24 23:26 10/12/24 18:42 Range/Units Prothrombin Time 10.9 9.3-11.8 sec Prothrombin Time INR 1.03 0.9-1.15 Activated Partial Thromboplast Time 29.3 24.5-34.5 SEC White Blood Count 5.4 # 4.4-10.8 10^3/uL Red Blood Count 4.20 4.0-5.20 10^6/uL Hemoglobin 13.4 12.2-16.2 g/dL Hematocrit 38.9 36.0-46.0 % Mean Corpuscular Volume 92.7 80.0-100.0 fL Mean Corpuscular Hemoglobin 31.9 28.0-32.0 pg Mean Corpuscular Hemoglobin Concent 34.4 32.0-36.0 g/dL Red Cell Distribution Width 13.5 11.8-14.3 % Platelet Count 151 140-450 10^3/uL Mean Platelet Volume 11.1 H 6.9-10.8 fL Neutrophils (%) (Auto) 69.8 37.0-80.0 % Lymphocytes (%) (Auto) 21.4 10.0-50.0 % Monocytes (%) (Auto) 7.6 0.0-12.0 % Eosinophils (%) (Auto) 0.5 0.0-7.0 % Basophils (%) (Auto) 0.7 0.0-2.0 % Neutrophils # (Auto) 3.7 1.6-8.6 10 ^3/uL Lymphocytes # (Auto) 1.1 0.4-5.4 10 ^3/uL Monocytes # (Auto) 0.4 0-1.3 10 ^3/uL Eosinophils # (Auto) 0 0-0.8 10 ^3/uL Basophils # (Auto) 0 0-0.2 10 ^3/uL Nucleated Red Blood Cells 0.1 % Sodium Level 142 # 136-145 mmol/L Potassium Level 3.8 3.5-5.1 mmol/L Chloride Level 110 H 98-107 mmol/L Carbon Dioxide Level 23 20-31 mmol/L Anion Gap 9 5-15 Blood Urea Nitrogen 8 L 9-23 mg/dL Creatinine 0.60 0.550-1.02 mg/dL Glomerular Filtration Rate Calc 114 >90 mL/min BUN/Creatinine Ratio 13.3 10.0-20.0 Serum Glucose 93 74-106 mg/dL Calcium Level 9.7 8.7-10.4 mg/dL Magnesium Level 2.2 1.6-2.6 mg/dL Creatine Kinase 241 H 34-145 U/L Troponin I High Sensitivity 638 *H </=34 ng/L Urine Color Colorless Yellow Urine Clarity Clear Clear Urine pH 6.0 5.0-9.0 Urine Specific [place] 1.004 1.001-1.035 Urine Protein Negative Negative Urine Ketones Negative Negative Urine Blood Negative Negative /uL Urine Nitrite Negative Negative Urine Bilirubin Negative Negative Urine Urobilinogen Normal Negative mg/dL Urine Leukocyte Esterase Negative Negative /uL Urine RBC <1 0 - 4 /hpf Urine Microscopic WBC 0-5 /HPF Urine Squamous Epithelial Cells Few <5 /hpf Urine Bacteria None seen None Seen /hpf Urine Glucose Normal Normal mg/dL Urine Opiates Screen Neg NEGATIVE Urine Fentanyl Screen Neg NEGATIVE Urine Barbiturates Screen Neg NEGATIVE Urine Phencyclidine Screen Neg NEGATIVE Urine Amphetamines Screen Neg NEGATIVE Urine Benzodiazepines Screen Neg NEGATIVE Urine Cocaine Screen Neg NEGATIVE Urine Cannabinoids Screen Neg NEGATIVE Lactic Acid Level 1.8 0.4-2.0 mmol/L Total Bilirubin 0.4 0.2-1.0 mg/dL Aspartate Amino Transferase (AST) 16 13-40 U/L Alanine Aminotransferase (ALT) 17 7-40 U/L Alkaline Phosphatase 63 46-116 U/L Total Protein 7.5 5.7-8.2 g/dL Albumin 4.7 3.2-4.8 g/dL Assessment Grand mal seizure, 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 Good sleep schedule to avoid sleep deprivation Avoid street drug, alcohol Avoid skipping seizure medication Not drive on she was cleared DMV report in the chart Follow up with her doctors on discharge This medical document was created using an electronic medical record system with [employer] dictation system. Although this document has been carefully reviewed, there may still be some phonetic and typographical errors. These areas are purely typographical due to imperfections of the software programs, and do not reflect any compromise in the patient's medical care. Plan discussed with: Patient, Spouse, Other SANDRA PAPPAS MD Oct 13, 2024 18:39
[2024-10-14 01:00] VITALS: BP 101/58; PULSE 64; RESP 12; TEMP 98.1; O2SAT 100
[2024-10-14 05:00] VITALS: BP 114/69; PULSE 65; RESP 14; TEMP 97.9; O2SAT 99
[2024-10-14 07:40] LABS: Basophils # (auto) 0 10 ^3/uL (0-0.2); Basophils % (auto) 0.7 % (0.0-2.0); Eosinophils # (auto) 0.1 10 ^3/uL (0-0.8); Eosinophils % (auto) 1.3 % (0.0-7.0); Hematocrit 40.2 % (36.0-46.0); Hemoglobin 13.7 g/dL (12.2-16.2); Lymphocytes # (auto) 0.9 10 ^3/uL (0.4-5.4); Lymphocytes % (auto) 19.1 % (10.0-50.0); Mean Corpuscular Hemoglobin 31.8 pg (28.0-32.0); Mean Corpuscular Hgb Conc. 34.1 g/dL (32.0-36.0); Mean Corpuscular Volume 93.1 fL (80.0-100.0); Monocytes # (auto) 0.3 10 ^3/uL (0-1.3); Monocytes % (auto) 5.5 % (0.0-12.0); Neutrophils # (auto) 3.4 10 ^3/uL (1.6-8.6); Neutrophils % (auto) 73.4 % (37.0-80.0); Nucleated Red Blood Cells % 0.1 %; Platelet Count (auto) 145 10^3/uL (140-450); Red Blood Cells 4.32 10^6/uL (4.0-5.20); Red Cell Distribution Width 13.6 % (11.8-14.3); White Blood Cell 4.7 10^3/uL (4.4-10.8)
[2024-10-14 08:00] VITALS: PULSE 82; PULSE 83; RESP 18; O2SAT 98
[2024-10-14 08:10] LABS: Anion Gap 8 (5-15); Carbon Dioxide 23 mmol/L (20-31); Sodium 139 mmol/L (136-145)
[2024-10-14 08:11] LABS: Calcium 9.5 mg/dL (8.7-10.4)
[2024-10-14 08:16] LABS: BUN/Creatinine Ratio 12.5 (10.0-20.0); Glucose 90 mg/dL (74-106)
[2024-10-14 08:20] LABS: Blood Urea Nitrogen 7 mg/dL (9-23); Chloride 108 mmol/L (98-107); Potassium 3.4 mmol/L (3.5-5.1)
[2024-10-14 09:01] VITALS: BP 97/64; PULSE 69; RESP 18; TEMP 97.4; O2SAT 98
[2024-10-14] MEDS: POTASSIUM CHL 20 Meq TABLET PO ONE (11:24)
[2024-10-14] MEDS ORDERED: LEVE500T3 PO (12:42)
[2024-10-14 13:00] VITALS: BP 122/81; PULSE 82; RESP 19; TEMP 98.1; O2SAT 97
[2024-10-14 13:17] VITALS: BP 122/81; PULSE 82; RESP 17; TEMP 98.1; O2SAT 95
--- NOTE | 2024-10-14 16:31 | DVHDSRES ---
Discharge Summary Date of Admission Resident Creating Document: MAGDA RIVAS RESIDENT Oct 12, 2024 at 23:29 Date of Discharge: Oct 14, 2024 Admitting Diagnosis Seizure Labs/Diagnostic Data: Laboratory Results Test 10/14/24 05:48 10/13/24 09:43 10/13/24 06:20 10/12/24 23:26 White Blood Count 4.7 10^3/uL (4.4-10.8) Red Blood Count 4.32 10^6/uL (4.0-5.20) Hemoglobin 13.7 g/dL (12.2-16.2) Hematocrit 40.2 % (36.0-46.0) Mean Corpuscular Volume 93.1 fL (80.0-100.0) Mean Corpuscular Hemoglobin 31.8 pg (28.0-32.0) Mean Corpuscular Hemoglobin Concent 34.1 g/dL (32.0-36.0) Red Cell Distribution Width 13.6 % (11.8-14.3) Platelet Count 145 10^3/uL (140-450) Mean Platelet Volume 11.3 fL (6.9-10.8) Neutrophils (%) (Auto) 73.4 % (37.0-80.0) Lymphocytes (%) (Auto) 19.1 % (10.0-50.0) Monocytes (%) (Auto) 5.5 % (0.0-12.0) Eosinophils (%) (Auto) 1.3 % (0.0-7.0) Basophils (%) (Auto) 0.7 % (0.0-2.0) Neutrophils # (Auto) 3.4 10 ^3/uL (1.6-8.6) Lymphocytes # (Auto) 0.9 10 ^3/uL (0.4-5.4) Monocytes # (Auto) 0.3 10 ^3/uL (0-1.3) Eosinophils # (Auto) 0.1 10 ^3/uL (0-0.8) Basophils # (Auto) 0 10 ^3/uL (0-0.2) Nucleated Red Blood Cells 0.1 % Sodium Level 139 mmol/L (136-145) Potassium Level 3.4 mmol/L (3.5-5.1) Chloride Level 108 mmol/L (98-107) Carbon Dioxide Level 23 mmol/L (20-31) Anion Gap 8 (5-15) Blood Urea Nitrogen 7 mg/dL (9-23) Creatinine 0.56 mg/dL (0.550-1.02) Glomerular Filtration Rate Calc 116 mL/min (>90) BUN/Creatinine Ratio 12.5 (10.0-20.0) Serum Glucose 90 mg/dL (74-106) Calcium Level 9.5 mg/dL (8.7-10.4) Prothrombin Time 10.9 sec (9.3-11.8) Prothrombin Time INR 1.03 (0.9-1.15) Activated Partial Thromboplast Time 29.3 SEC (24.5-34.5) Magnesium Level 2.2 mg/dL (1.6-2.6) Creatine Kinase 241 U/L (34-145) Troponin I High Sensitivity 638 ng/L (</=34) Urine Color Colorless (Yellow) Urine Clarity Clear (Clear) Urine pH 6.0 (5.0-9.0) Urine Specific [place] 1.004 (1.001-1.035) Urine Protein Negative (Negative) Urine Ketones Negative (Negative) Urine Blood Negative /uL (Negative) Urine Nitrite Negative (Negative) Urine Bilirubin Negative (Negative) Urine Urobilinogen Normal mg/dL (Negative) Urine Leukocyte Esterase Negative /uL (Negative) Urine RBC <1 /hpf (0 - 4) Urine Microscopic WBC /HPF (0-5) Urine Squamous Epithelial Cells Few /hpf (<5) Urine Bacteria None seen /hpf (None Seen) Urine Glucose Normal mg/dL (Normal) Urine Opiates Screen Neg (NEGATIVE) Urine Fentanyl Screen Neg (NEGATIVE) Urine Barbiturates Screen Neg (NEGATIVE) Urine Phencyclidine Screen Neg (NEGATIVE) Urine Amphetamines Screen Neg (NEGATIVE) Urine Benzodiazepines Screen Neg (NEGATIVE) Urine Cocaine Screen Neg (NEGATIVE) Urine Cannabinoids Screen Neg (NEGATIVE) Test 10/12/24 18:42 Lactic Acid Level 1.8 mmol/L (0.4-2.0) Total Bilirubin 0.4 mg/dL (0.2-1.0) Aspartate Amino Transferase (AST) 16 U/L (13-40) Alanine Aminotransferase (ALT) 17 U/L (7-40) Alkaline Phosphatase 63 U/L (46-116) Total Protein 7.5 g/dL (5.7-8.2) Albumin 4.7 g/dL (3.2-4.8) Other Laboratory Tests 10/14/24 05:48 Brief Hx & Hospital Course: Patient is a 44-year-old female with past medical history of seizure who brought to the hospital for breakthrough seizure , as per patient she has been not getting enough sleep. Underwent CT scan of head and brain MRI which was unremarkable. Neurology consultation was done, likely breakthrough seizure related to sleep deprivation, stress induced. Could be related to noncompliant to medication however patient stated that she continued taking medication every day. Prescribed Keppra 500 mg p.o. b.i.d.. No any other sign including headache, motor weakness, sensory deficits, any other symptoms. Given patient he is clinically stable, advised to follow with primary care physician, continue taking Keppra 500 mg p.o. b.i.d., follow with primary care physician . patient agreed with discharge plan. Consults/Reason for consult Condition at Discharge: Stable Final Diagnosis/Problems List #Break-through seizure , ?likely due to CB use and medication non adherence #elevated trops likely NSTEMI type 2 due to demand ischaemia due to seizure, possible chest injury Discharge Disposition: Home Discharge Instruct/Medications Diet: Regular Activity: Light activity Follow Up/Referral: -follow up with your PCP Medications: keppra 500 mg po bid Discharge Statement: "Patient was advised to return to the ER or call 911 if any headaches, dizziness, shortness of breath, chest pain, abdominal pain, bleeding, fevers, or worsening of medical condition. Patient was counseled about treatment plan, medications, possible side effects, patientverbalized understanding. All questions were answered to the best of my ability. This discharge took greater then 30 minutes in planning, reviewing documentation, counseling the patient, and discussing with other team members." ASSESSMENT ASSESSMENT Assessment Breakthrough sz likely stress caused Date of Service: Oct 14, 2024 Billing Provider: SANDRA SAMUELS MD Common Visit Codes: 11767-VUF/OBS DISCH DAY >30min MAGDA RIVAS RESIDENT Oct 14, 2024 16:31 SANDRA SAMUELS MD Oct 15, 2024 09:43
--- NOTE | 2024-10-19 10:03 | ECG ---
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
--- NOTE | 2024-10-19 11:19 | ECG ---
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
== END 2024-10-14 13:40 | disposition home or self-care (01) | DRG 53 ==
LOC: ER 17:08 → EDBD 17:08 → OVERFLOW 23:29 → TELE-WESTW 10-13 03:05
PROVIDERS: ADMIT Student in an Organized Health Care Education/Training Program; ATTEND Internal Medicine
DX: G40.409 Other generalized epilepsy and epileptic syndromes, not intractable, without status epilepticus (principal); I21.A1 Myocardial infarction type 2; F32.A Depression, unspecified; S29.8XXA Other specified injuries of thorax, initial encounter; T40.715A Adverse effect of cannabis, initial encounter; Z98.891 History of uterine scar from previous surgery; Z83.3 Family history of diabetes mellitus; Z91.148 Patient's other noncompliance with medication regimen for other reason; Z79.899 Other long term (current) drug therapy; X58.XXXA Exposure to other specified factors, initial encounter; Y93.89 Activity, other specified; Y92.89 Other specified places as the place of occurrence of the external cause; Y99.8 Other external cause status
CPT/HCPCS: 36415; 70450; 71045; 80048; 80053; 80307; 81001; 82550; 83605; 83735; 84484; 85025; 85610; 85730; 93005; 93306; 96365; G0378